=== PATIENT | male | born 1985 | race Caucasian/White ===

== ENCOUNTER → 2025-08-05 | Outpatient (CLI) | payer OTHER ==
[2025-08-05 11:16] LABS: PLATELET COUNT, AUTOMATED 288 10^3/uL (150-450)
[2025-08-05 11:45] LABS: ALT/SGPT 26 U/L (7.0-40); AST/SGOT 19 U/L (<34); CALCIUM LEVEL 9.3 MG/DL (8.5-10.1); CARBON DIOXIDE LEVEL 31 MMOL/L (20-31); CHLORIDE LEVEL 103 MMOL/L (98-107); CHOLESTEROL LEVEL 221 MG/DL (<200); CHOLESTEROL RISK RATIO 3.51 (<5); CREATININE FOR GFR 0.90 MG/DL (0.70-1.30); GLOMERULAR FILTRATION RATE > 90.0 (>60); LDL CHOLESTEROL 144.8 MG/DL (<100); NON-HDL-C 158.2 MG/DL; POTASSIUM SERUM 4.7 MMOL/L (3.5-5.1); SODIUM LEVEL 142 MMOL/L (136-145); TRIGLYCERIDES LEVEL 67 MG/DL (<150)
== END ==
LOC: M PLALAB 09:05
PROVIDERS: ATTEND Family Medicine
DX: Z13.6 Encounter for screening for cardiovascular disorders (principal)